=== PATIENT | male | born 1990 | race Caucasian/White ===

== ENCOUNTER 2016-12-04 18:01 | Emergency (ER) | payer SELFPAY ==
[~2016-12-04] VITALS: Ht 175.3 cm; Wt 123.0 kg
[~2016-12-04 18:01] MED LIST: OSEL75 PO
[2016-12-04 18:04] VITALS: BP 134/75; PULSE 83; RESP 16; TEMP 98.2; O2SAT 97
[2016-12-04] MEDS ORDERED: TYLE325T PO (18:15)
[2016-12-04] MEDS ORDERED: VENL150C39 PO (18:15)
--- NOTE | 2016-12-04 18:41 | PD ---
HPI Chief Complaint: Pain: Acute or Chronic Time Seen by Provider: 18:35 Travel History International Travel<30 days: No Contact w/Intl Traveler<30days: No Traveled to known affect area: No History of Present Illness HPI 26-year-old right-handed male presents to the emergency room for evaluation of right hand pain for the past 3 days. Patient denies trauma or injury. States pain came on gradually and worsened yesterday and today. Pain is so severe he cannot move his hand. Localized to the radial side of the thumb. He has associated swelling. It radiates into his forearm. He has been taking extra strength Tylenol and Motrin without any relief in symptoms. He denies paresthesias. 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 Denies chronic medical conditions or daily medications. PFSH Past Medical History Hx Anticoagulant Therapy: No Asthma: Yes Autoimmune Disease: No Anxiety: Yes Depression: Yes Cardiovascular Problems: No Diabetes: No Diminished Hearing: No Gastrointestinal Disorders: Yes (PYLORIC STENOSIS) Genitourinary: No Headaches: Yes Musculoskeletal: Yes (HX JRA AND PAIN) Neurologic: Yes Psychiatric: Yes Respiratory: Yes (ASTHMA) Migraines: Yes (HX OF BUT NONE IN A FEW YEARS) Influenza Vaccination: No Past Surgical History Abdominal Surgery: Yes (PYLORIC STENOSIS AT 5 WEEKS OLD) Other Surgery: Yes (PYLOROMYOTOMY AT 6 WEEKS) Social History Alcohol Use: No Tobacco Use: No Substance Use: No Allergies-Medications (Allergen,Severity, Reaction): Coded Allergies: No Known Allergies (Verified , 12/04/16) Reported Meds & Prescriptions Reported Meds & Active Scripts Active Reported Tylenol (Acetaminophen) 325 Mg Tab 650 Mg PO Q6H PRN Venlafaxine ER 24 HR (Venlafaxine HCl) 150 Mg Cap 100 Mg PO DAILY Review of Systems Except as stated in HPI: all other systems reviewed are Neg Physical Exam Narrative GENERAL: Well-nourished, well-developed male in no acute distress. Afebrile. Ambulatory. SKIN: Focused skin assessment warm/dry. No erythema or ecchymosis. HEAD: Normocephalic. EYES: No scleral icterus. No injection or drainage. NECK: Supple, trachea midline. No JVD or lymphadenopathy. CARDIOVASCULAR: Regular rate and rhythm without murmurs, gallops, or rubs. RESPIRATORY: Breath sounds equal bilaterally. No accessory muscle use. EXTREMITY: Right hand extremely tender to palpation especially over the thumb. Limited range of motion of the hand secondary to pain. Moderate edema localized to the dorsal hand. Less than 2 second capillary refill distally. Mild snuffbox tenderness. Data Data Last Documented VS Vital Signs Date Time Temp Pulse Resp B/P Pulse Ox O2 Delivery O2 Flow Rate FiO2 12/04/16 18:04 98.2 83 16 134/75 97 Orders Hand, Complete (Pla2tay) (12/04/16 ) [facility] Medical Decision Making Medical Screen Exam Complete: Yes Emergency Medical Condition: Yes Medical Record Reviewed: Yes Differential Diagnosis tenosynovitis, sprain, strain, fracture Narrative Course 26-year-old male presents to the emergency room for evaluation of right hand pain and swelling for the past 3 days. He denies trauma or injury. Physical exam reveals moderate edema of the right hand than extreme tenderness to palpation of the proximal thumb. Limited range of motion secondary to pain. Less than 2 second capillary refill distally. Limited range of motion secondary to pain. No concern for septic arthritis. No increased warmth or erythema. No ecchymosis. X-ray is negative. Patient uses his right hand to hold the trigger of a film washer at work all day. This is overuse injury. Patient placed in Velcro wrist splint and told to follow-up the primary care physician or return for worsening symptoms. He understands and agrees to plan. Diagnosis Primary Impression: Tenosynovitis of right hand Referrals: Primary Care Physician Patient Instructions: General Instructions, Tenosynovitis (ED) Additional Instructions: Rest and drink plenty of fluids. Use splint as needed for pain. Take ibuprofen with food as directed, as needed for pain. Apply ice to the affected area for 20 minutes at a time, as needed for pain and swelling. Follow-up with a primary care physician. Return to the emergency room for worsening symptoms. Med/Other Pt SpecificInfo: Prescription(s) given Disposition: 01 DISCHARGE HOME Condition: Stable Lisa Cevallos Dec 04, 2016 18:41
--- NOTE | 2016-12-04 19:12 | RADHPO ---
EXAM DATE/TIME: 12/04/2016 18:33 [facility] COMPARISON: No previous studies available for comparison. INDICATIONS : Right hand pain for three days no known injury. MEDICAL HISTORY : None. SURGICAL HISTORY : None. ENCOUNTER: Initial ACUITY: 3 days PAIN SCORE: 7/10 LOCATION: Right hand. FINDINGS: Three view examination of the right hand demonstrates no soft tissue swelling, dislocation, or fractu re. The carpal bones appear intact. The interphalangeal and metacarpophalangeal joints are intact. Bony mineralization is normal. CONCLUSION: Unremarkable examination of the right hand. Geovanni Garcia MD on December 04, 2016 at 19:08 Board Certified Radiologist. This report was verified electronically.
[2016-12-04] MEDS ORDERED: IBUP-232 PO (19:19)
== END 2016-12-04 19:28 | disposition home or self-care (01) ==
LOC: PHEFT 18:01
DX: M79.641 Pain in right hand (principal); M65.9 Synovitis and tenosynovitis, unspecified; J45.909 Unspecified asthma, uncomplicated
CPT/HCPCS: 73130; 99283; L3908

== ENCOUNTER 2017-06-09 21:15 | Emergency (ER) | payer SELFPAY ==
[~2017-06-09] VITALS: Ht 172.7 cm; Wt 124.0 kg
[~2017-06-09 21:15] MED LIST changes: +IBUP-232 PO; -OSEL75 PO; +TYLE325T PO; +VENL150C39 PO
[2017-06-09 21:18] VITALS: BP 125/75; PULSE 81; RESP 16; TEMP 98.4; O2SAT 97
[2017-06-09] MEDS ORDERED: AUGM875T3 PO (21:48)
[2017-06-09] MEDS ORDERED: CIPR0.3S LEFT EAR (21:48)
--- NOTE | 2017-06-09 21:50 | PD ---
HPI Chief Complaint: ENT Complaint Time Seen by Provider: 21:42 Travel History International Travel<30 days: No Contact w/Intl Traveler<30days: No Traveled to known affect area: No History of Present Illness HPI 27-year-old male presents to the emergency department for complaint of left ear pain since yesterday. Patient states he yawned and felt a popping sensation. Patient states he experienced severe pain. Later he thought he noted some scant amount of blood in his ear and tried use a Q-tip to clean blood around from the ear. Patient has noted some diminished hearing. Patient's had no further drainage from the ear. Patient denies any right ear pain. No fever or chills. No report of sore throat or cough. Patient rates his pain 7/10 in intensity. Patient denies any chronic medical conditions except for asthma and migraines and anxiety depression for which she is prescribed Effexor. PFSH Past Medical History Narrative Medical Asthma anxiety depression asthma migraines pyloric stenosis repair no tobacco use; nursing notes reviewed Hx Anticoagulant Therapy: No Asthma: Yes Autoimmune Disease: No Anxiety: Yes Depression: Yes Cardiovascular Problems: No Diabetes: No Diminished Hearing: No Gastrointestinal Disorders: Yes (PYLORIC STENOSIS) Genitourinary: No Headaches: Yes Musculoskeletal: Yes (HX JRA AND PAIN) Neurologic: Yes Psychiatric: Yes Respiratory: Yes (ASTHMA) Immunizations Current: Yes Migraines: Yes (HX OF BUT NONE IN A FEW YEARS) Tetanus Vaccination: < 5 Years Influenza Vaccination: No Past Surgical History Abdominal Surgery: Yes (PYLORIC STENOSIS AT 5 WEEKS OLD) Other Surgery: Yes (PYLOROMYOTOMY AT 6 WEEKS) Social History Alcohol Use: No Tobacco Use: No Substance Use: No Allergies-Medications (Allergen,Severity, Reaction): Coded Allergies: No Known Allergies (Verified Adverse Reaction, Unknown, 06/09/17) Reported Meds & Prescriptions Reported Meds & Active Scripts Active Reported Venlafaxine ER 24 HR (Venlafaxine HCl) 150 Mg Cap 100 Mg PO DAILY Review of Systems Except as stated in HPI: all other systems reviewed are Neg Physical Exam Narrative GENERAL: Well-developed well-nourished female in no acute distress no respiratory distress SKIN: Warm and dry. HEAD: Normocephalic. EYES: No scleral icterus. No injection or drainage. ENT: Mucous membranes moist airway is patent right tympanic med brain no redness no dullness to loss of landmarks; left tympanic membrane positive redness with some dried blood but no obvious hole to identify obvious perforation external auditory canal no induration no erythema no foreign body. NECK: Supple, trachea midline. No JVD or lymphadenopathy. CARDIOVASCULAR: Regular rate and rhythm without murmurs, gallops, or rubs. RESPIRATORY: Breath sounds equal bilaterally. No accessory muscle use. GASTROINTESTINAL: Abdomen soft, non-tender, nondistended. MUSCULOSKELETAL: No cyanosis, or edema. BACK: Nontender without obvious deformity. No CVA tenderness. Data Data Last Documented VS Vital Signs Date Time Temp Pulse Resp B/P (MAP) Pulse Ox O2 Delivery O2 Flow Rate FiO2 06/09/17 21:18 98.4 81 16 125/75 (92) 97 MDM Medical Decision Making Medical Screen Exam Complete: Yes Emergency Medical Condition: Yes Medical Record Reviewed: Yes Differential Diagnosis Otitis media, tympanic membrane perforation, otitis externa, otalgia Narrative Course Well-developed well-nourished 27-year-old male in no acute distress no respiratory distress with evidence of probable small perforation of the tympanic membrane associated with symptoms identified at onset yesterday no current drainage or bleeding or obvious perforation noted. Diagnosis Primary Impression: Otalgia of left ear Additional Impression: Tympanic membrane perforation, marginal Qualified Codes: H72.2X2 - Other marginal perforations of tympanic membrane, left ear Referrals: Ear / Nose / Throat Specialist 2 days Patient Instructions: General Instructions Additional Instructions: Complete course of antibiotic as prescribed Follow-up with senior search marketing analyst Follow-up with primary care provider Increase fluid hydration Return to the emergency department for any concerns or change in condition May use [id number] ibuprofen/Advil/Motrin 600 mg as often as every 6 hours up to 800 mg as often as every 8 hours for fever 100.4F or greater or for pain associated inflammation May use [id number] acetaminophen/Tylenol every 4-6 hours as needed for fever 100.4F or greater or for minor pain May use [id number] Afrin nasal decongestant spray 1 spray to each nostril twice daily for 2-3 days avoid overuse to avoid rebound sinus congestion Med/Other Pt SpecificInfo: Prescription(s) given Scripts Amoxicillin-Clavulanate (Augmentin) 875-125 Mg Tab 1 TAB PO BID for Infection for 10 Days, #20 TAB 0 Refills Prov: Negin Maguire MD 06/09/17 Ciprofloxacin-Dexamethasone Otic Drops (Ciprodex Otic Drops) 0.3-0.1% Susp 4 DROP LEFT EAR BID for Infection, #1 BOTTLE 0 Refills Prov: Negin Maguire MD 06/09/17 Disposition: 01 DISCHARGE HOME Condition: Stable Negin Maguire MD Jun 09, 2017 21:50
== END 2017-06-09 21:58 | disposition home or self-care (01) ==
LOC: PHED 21:15
DX: H72.2X2 Other marginal perforations of tympanic membrane, left ear (principal); J45.909 Unspecified asthma, uncomplicated; F41.9 Anxiety disorder, unspecified; M08.00 Unspecified juvenile rheumatoid arthritis of unspecified site; Z79.899 Other long term (current) drug therapy
CPT/HCPCS: 99284